=== PATIENT | female | born 1985 | race Caucasian/White ===

== ENCOUNTER 2020-11-15 10:20 | Emergency (ER) | payer MEDICAID ==
[~2020-11-15] VITALS: Ht 162.6 cm; Wt 67.6 kg
[2020-11-15] MEDS ORDERED: PENICILLIN V P500 MG PO (10:44)
[2020-11-15] MEDS ORDERED: VYVANSE10 MG (11:39)
[2020-11-15] MEDS ORDERED: PROZAC10 MG (11:39)
[2020-11-15] MEDS ORDERED: HALDOL5 MG/1 ML (11:39)
== END 2020-11-15 11:12 | disposition home or self-care (01) ==
LOC: ED 10:20
DX: K08.89 Other specified disorders of teeth and supporting structures (principal); F17.200 Nicotine dependence, unspecified, uncomplicated
CPT/HCPCS: 99282; A9270

== ENCOUNTER 2021-01-03 02:35 | Emergency (ER) | payer MEDICAID ==
[~2021-01-03] VITALS: Ht 162.6 cm; Wt 66.0 kg
[~2021-01-03 02:35] MED LIST: HALDOL5 MG/1 ML; PENICILLIN V P500 MG PO; PROZAC10 MG; VYVANSE10 MG
== END 2021-01-03 03:50 | disposition home or self-care (01) ==
LOC: ED 02:35
DX: F25.9 Schizoaffective disorder, unspecified (principal); F17.200 Nicotine dependence, unspecified, uncomplicated; Z79.899 Other long term (current) drug therapy
CPT/HCPCS: 99284

== ENCOUNTER 2021-04-24 11:38 | Emergency (ER) | payer MEDICAID ==
[~2021-04-24] VITALS: Ht 162.6 cm; Wt 66.0 kg
[2021-04-24] MEDS ORDERED: RISPERIDONE1 MG PO (12:19)
[2021-04-24] MEDS ORDERED: BENZTROPINE ME0.5 MG PO (12:19)
[2021-04-24] MEDS ORDERED: AMPHETAMINE SAL15 MG PO (12:19)
== END 2021-04-25 10:12 | disposition home or self-care (01) ==
LOC: ED 11:38
DX: R11.10 Vomiting, unspecified (principal); F98.8 Other specified behavioral and emotional disorders with onset usually occurring in childhood and adolescence; F17.200 Nicotine dependence, unspecified, uncomplicated; Z79.899 Other long term (current) drug therapy
CPT/HCPCS: 74022; 74177; 80053; 81001; 83690; 84703; 85025; 99284-25